=== PATIENT | female | born 2000 | race Caucasian/White ===

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

== ENCOUNTER 2020-04-14 08:22 | Emergency (ER) | payer OTHER ==
[2020-04-14] MEDS ORDERED: KEFLEX500 MG PO (08:40)
[2020-04-14 09:00] VITALS: BP 142/77
== END 2020-04-14 09:00 | disposition home or self-care (01) | DRG 603 ==
LOC: ED 08:22
DX: L03.313 Cellulitis of chest wall (principal); S01.431A Puncture wound without foreign body of right cheek and temporomandibular area, initial encounter; S41.031A Puncture wound without foreign body of right shoulder, initial encounter; W86.8XXA Exposure to other electric current, initial encounter; Y93.89 Activity, other specified; Y92.89 Other specified places as the place of occurrence of the external cause; Y99.0 Civilian activity done for income or pay

== ENCOUNTER 2020-09-15 00:07 | Emergency (ER) | payer OTHER ==
[~2020-09-15] VITALS: Ht 167.6 cm; Wt 100.0 kg
[~2020-09-15 00:07] MED LIST changes: +KEFLEX500 MG PO
[2020-09-15] MEDS ORDERED: TRUVADA1 TAB PO (00:45)
[2020-09-15] MEDS ORDERED: TIVICAY50 MG PO (00:45)
[2020-09-15 00:58] LABS: HEMATOCRIT 40.8 % (37.0-47.0); HEMOGLOBIN 13.4 g/dl (12.0-16.0); IMMATURE GRANULOCYTES 0.1 % (0.0-5.0); MEAN CELL VOLUME 88.7 fL CALC (80.0-100.0); MEAN CORPUSCULAR HGB 29.1 pG CALC (26.0-32.0); MEAN CORPUSCULAR HGB CONC 32.8 g/dL CAL (32.0-36.0); NEUT# 4.68 thou/uL (2.00-7.15); RED BLOOD COUNT 4.6 mill/uL (4.20-5.60); RED CELL DISTRI WIDTH 12.3 % (11.5-15.5)
[2020-09-15 01:20] LABS: ALBUMIN 4.3 g/dL (3.2-5.0); ALKALINE PHOSPHATASE 75 u/l (38-126); ANION GAP 13 (6-22 (CALC)); BUN 21 mg/dL (7-17); BUN/CREATININE RATIO 21 (12-20 (CALC)); CARBON DIOXIDE 26 mmol/l (22-30); CHLORIDE 105 mmol/l (95-108); GFR > 60 ML/MIN (>=60 (CALC)); GFR FOR AFR.AMER. > 60 ML/MIN (>=60 (CALC)); POTASSIUM 4.4 mmol/l (3.5-5.1); SGOT/AST 30 u/l (14-36); SODIUM 140 mmol/l (137-146); TOTAL PROTEIN 7.7 g/dL (6.3-8.2)
[2020-09-15 01:29] LABS: BILIRUBIN, TOTAL 0.4 mg/dL (0.0-1.4)
[2020-09-15 03:17] VITALS: BP 114/66
== END 2020-09-15 03:30 | disposition home or self-care (01) | DRG 605 ==
LOC: ED 00:07
PROVIDERS: Family Medicine
DX: S61.239A Puncture wound without foreign body of unspecified finger without damage to nail, initial encounter (principal); F17.200 Nicotine dependence, unspecified, uncomplicated; W46.0XXA Contact with hypodermic needle, initial encounter; Y93.89 Activity, other specified; Y92.149 Unspecified place in prison as the place of occurrence of the external cause; Y99.0 Civilian activity done for income or pay

== ENCOUNTER 2023-01-22 01:02 | Emergency (ER) | payer OTHER ==
[~2023-01-22] VITALS: Ht 167.6 cm; Wt 127.2 kg
[~2023-01-22 01:02] MED LIST changes: +TIVICAY50 MG PO; +TRUVADA1 TAB PO
[2023-01-22 01:28] VITALS: BP 119/78
[2023-01-22 02:16] LABS: URINE BILIRUBIN - DIPSTICK NEGATIVE (NEGATIVE); URINE BLOOD DIPSTICK MODERATE (NEGATIVE); URINE COLOR YELLOW; URINE GLUCOSE - DIPSTICK NEGATIVE (NEGATIVE); URINE KETONE NEGATIVE (NEGATIVE); URINE LEUK ESTERASE NEGATIVE (NEGATIVE); URINE NITRITE - DIPSTICK NEGATIVE (Negative); URINE PH 5.5 (4.5-8.0); URINE PROTEIN - DIPSTICK NEGATIVE (NEG-TRACE); URINE SPECIFIC GRAVITY >=1.030; URINE UROBILINOGEN - DIPSTICK 0.2 E.U./dL (0.2)
[2023-01-22 02:19] LABS: BASO% 0.4 % (0-3); EOS% 0.6 % (0-8); HEMATOCRIT 34.9 % (37.0-47.0); IMMATURE GRANULOCYTES 0.7 % (0.0-5.0); LYMPH% 11.6 % (15-41); MEAN CORPUSCULAR HGB 22.8 pG CALC (26.0-32.0); MEAN CORPUSCULAR HGB CONC 30.7 g/dL CAL (32.0-36.0); MONO% 9.8 % (2-13); NEUT# 6.22 thou/uL (2.00-7.15); NEUT% 76.9 % (42-76); RED BLOOD COUNT 4.7 mill/uL (4.20-5.60); RED CELL DISTRI WIDTH 15.8 % (11.5-15.5)
[2023-01-22 02:24] LABS: ALBUMIN 4.2 g/dL (3.2-5.0); ALKALINE PHOSPHATASE 65 u/l (38-126); ANION GAP 12 (6-22 (CALC)); BILIRUBIN, TOTAL 0.3 mg/dL (0.02-1.3); BUN 24 mg/dL (7-17); BUN/CREATININE RATIO 20 (12-20 (CALC)); CARBON DIOXIDE 25 mmol/l (22-30); CHLORIDE 104 mmol/l (95-108); CREATININE 1.2 mg/dL (0.5-1.0); GFR FOR AFR.AMER. > 60 ML/MIN (>=60 (CALC)); GFR OTHER RACES 56 ML/MIN (>=60 (CALC)); LIPASE 91 u/l (23-300); MAGNESIUM 1.6 mg/dL (1.6-2.3); POTASSIUM 4.1 mmol/l (3.5-5.1); SGOT/AST 32 u/l (14-36); SODIUM 136 mmol/l (137-146); TOTAL PROTEIN 7.4 g/dL (6.3-8.2)
[2023-01-22 02:27] LABS: URINE SQUAMOUS EPITHELIAL CELL FEW EPI/hpf (0-FEW)
[2023-01-22 02:28] LABS: URINE MUCUS FEW hpf (NONE-FEW)
[2023-01-22 02:39] LABS: HEMOGLOBIN 10.7 g/dl (12.0-16.0); MEAN CELL VOLUME 74.3 fL CALC (80.0-100.0)
[2023-01-22] MEDS ORDERED: IMODIUM2 MG PO (02:54)
[2023-01-22] MEDS ORDERED: PROMETHAZINE HY25 M1 PO (02:54)
[2023-01-22 03:43] VITALS: BP 119/78
== END 2023-01-22 03:44 | disposition home or self-care (01) | DRG 392 ==
LOC: ED 01:02
PROVIDERS: Family Medicine
DX: A08.4 Viral intestinal infection, unspecified (principal)

== ENCOUNTER 2023-12-14 18:12 | Emergency (ER) | payer SELFPAY ==
[~2023-12-14] VITALS: Ht 170.2 cm; Wt 122.5 kg
[~2023-12-14 18:12] MED LIST changes: +IMODIUM2 MG PO; +PROMETHAZINE HY25 M1 PO
[2023-12-14] MEDS ORDERED: NAPROXEN500 MG PO (20:06)
[2023-12-14 20:13] VITALS: BP 132/88
== END 2023-12-14 20:19 | disposition home or self-care (01) | DRG 605 ==
LOC: ED 18:12
DX: S90.32XA Contusion of left foot, initial encounter (principal); S10.91XA Abrasion of unspecified part of neck, initial encounter; Y04.0XXA Assault by unarmed brawl or fight, initial encounter; Y92.039 Unspecified place in apartment as the place of occurrence of the external cause

== ENCOUNTER 2025-01-02 00:46 | Emergency (ER) | payer OTHER ==
[2025-01-02] VITALS (7 sets, daily range): BP systolic 93–123; BP diastolic 51–79
[~2025-01-02] VITALS: Ht 170.2 cm; Wt 134.1 kg
[~2025-01-02 00:46] MED LIST changes: +NAPROXEN500 MG PO
[2025-01-02] MEDS ORDERED: PROCHLORPERAZINE EDISYLATE 10 MG/2 ML SDV IV ONE (00:50)
[2025-01-02] MEDS ORDERED: SODIUM CHLORIDE 0.9% 1,000 ML IV ONE (00:55)
[2025-01-02 01:10] LABS: BASO% 0.3 % (0-3); EOS% 0.5 % (0-8); IMMATURE GRANULOCYTES 0.1 % (0.0-5.0); LYMPH% 18.7 % (15-41); MEAN CORPUSCULAR HGB 29.4 pG CALC (26.0-32.0); MONO% 6.4 % (2-13); NEUT# 9.54 thou/uL (2.00-7.15); RED BLOOD COUNT 4.93 mill/uL (4.20-5.60); RED CELL DISTRI WIDTH 12.6 % (11.5-15.5)
[2025-01-02 01:11] LABS: HEMATOCRIT 43.9 % (37.0-47.0); HEMOGLOBIN 14.5 g/dl (12.0-16.0)
[2025-01-02 01:19] LABS: ALBUMIN 4.6 g/dL (3.2-5.0); BILIRUBIN, TOTAL 0.4 mg/dL (0.02-1.3); POTASSIUM 3.6 mmol/l (3.5-5.1); TOTAL PROTEIN 8.2 g/dL (6.3-8.2)
== END 2025-01-02 03:03 | disposition home or self-care (01) | DRG 897 ==
LOC: ED 00:46
PROVIDERS: Family Medicine
DX: F10.129 Alcohol abuse with intoxication, unspecified (principal); Y90.6 Blood alcohol level of 120-199 mg/100 ml
CPT/HCPCS: J0780